=== PATIENT | female | born 1995 ===

== ENCOUNTER → 2016-12-19 | Outpatient (CLI) | payer BC, OTHER | END | disposition home or self-care (01) | LOC: C.RDSM 10:50 | PROVIDERS: ATTEND Internal Medicine | DX: M79.672 Pain in left foot (principal) ==

== ENCOUNTER → 2018-01-10 | Outpatient (CLI) | payer BC, OTHER | END | disposition home or self-care (01) | LOC: C.RDSM 17:47 | PROVIDERS: ATTEND Physical Medicine & Rehabilitation | DX: M54.5 Low back pain (principal) ==

== ENCOUNTER → 2018-01-18 | Outpatient (CLI) | payer BC, OTHER ==
--- NOTE | 2018-01-18 10:49 | DIAGNOSTIC IMAGING REPORT ---
LUMBAR SPINE W/O CONTRAST CLINICAL HISTORY: 22 years-old Female presenting with LEFT LOW BACK PAIN, sacroiliac joint pain greater on the left, pain in the L2 and L4 distribution, history of scoliosis, no known injury. TECHNIQUE: Multisequence, multiplanar MR imaging of the lumbar spine was performed without the use of intravenous contrast. IV contrast: None. COMPARISON: Plain radiographs of the lumbar spine from 01/10/2018. FINDINGS: Localizer images: Unremarkable. Levocurvature (26 degrees) of the lumbar spine centered at L2-3. Otherwise normal lumbar lordosis. Vertebral bodies maintain normal height, alignment, and bone marrow signal intensity. Intervertebral discs preserved allowing for scoliotic curvature. An annular fissure may be present at L5-S1. No significant spinal canal or neural foraminal narrowing. No significant degenerative change. The spinal cord ends in good position at L1. Cauda equina normal in morphology allowing for scoliosis. Paraspinal musculature within normal limits. IMPRESSION: 1. Levoscoliotic curvature of the lumbar spine centered at L2-3 (26 degrees). 2. Possible annular fissure at L5-S1. 3. No significant neural foraminal or spinal canal stenosis. Electronically signed by: Vijay Grady M.D. 01/18/2018 10:47 AM Dictated Date/Time: 01/18/2018 10:42 AM
== END | disposition home or self-care (01) ==
LOC: C.MRI 09:49
PROVIDERS: ATTEND Family Medicine Sports Medicine
DX: M41.9 Scoliosis, unspecified (principal); M54.5 Low back pain